=== PATIENT | female | born 1950 | race Caucasian/White ===

== ENCOUNTER 2016-08-14 16:18 | Emergency (ER) | payer OTHER | END 2016-08-14 21:32 | disposition home or self-care (01) | LOC: FER 16:18 | DX: S39.012A Strain of muscle, fascia and tendon of lower back, initial encounter (principal); I10 Essential (primary) hypertension; E11.9 Type 2 diabetes mellitus without complications; M41.9 Scoliosis, unspecified; Z88.5 Allergy status to narcotic agent; Z79.899 Other long term (current) drug therapy | CPT/HCPCS: 72131; J1030; J1885 ==

== ENCOUNTER 2021-10-11 09:42 | Emergency (ER) | payer OTHER ==
[~2021-10-11] VITALS: Ht 154.9 cm; Wt 68.0 kg
[~2021-10-11 09:42] MED LIST: BIOTIN10000 MCG PO; DICLOFENAC POTA50 MG PO; METFORMIN HCL500 MG PO; PERCOCET 7.5/321 TAB PO; ROBAXIN750 MG PO; VOLTAREN **OUT50 MG PO
[2021-10-11] MEDS ORDERED: LISINOPRIL-HCT1 EAC2 PO (10:14)
[2021-10-11] MEDS ORDERED: METFORMIN HCL500 M1 PO (10:15)
[2021-10-11] MEDS ORDERED: SYNTHROID75 MC1 PO (10:15)
[2021-10-11] MEDS ORDERED: PRAVASTATIN SOD40 MG PO (10:15)
[2021-10-11 12:41] LABS: BASOPHIL 0.3 % (0-2); EOSINOPHIL 0.4 % (0-7); HCT 43.4 % (37.0-47.0); HGB 14.5 g/dl (12.5-16.0); LYMPHOCYTE 18.7 % (15-48); MCH 31.7 pg (25.0-31.0); MCHC 33.4 g/dL (32.0-36.0); MCV 94.8 fL (78.0-100.0); MONOCYTE 12.3 % (0-12); MPV 10.4 fL (6.0-9.5); NRBC 0; PLT 210 K/uL (150-400); RBC 4.58 M/uL (4.20-5.40); RDW 13.7 % (11.5-14.0); WBC 9.2 K/uL (4.0-10.5)
[2021-10-11 13:03] LABS: BUN/CREAT RATIO (CALC) 21.1 RATIO; C-REACTIVE PROTEIN 0.9 mg/dL (<=0.90); CREATININE 0.9 mg/dL (0.51-0.95); POTASSIUM 3.8 mmol/L (3.5-5.1); URIC ACID 5.9 mg/dL (2.6-6.2)
[2021-10-11] MEDS ORDERED: PREDNISONE 20MG20 MG PO (14:22)
[2021-10-11] MEDS ORDERED: NORCO 5-325 TA1 EACH PO (14:22)
== END 2021-10-11 14:57 | disposition home or self-care (01) ==
LOC: FER 09:42
PROVIDERS: Emergency Medicine
DX: M65.811 Other synovitis and tenosynovitis, right shoulder (principal); M06.811 Other specified rheumatoid arthritis, right shoulder; I10 Essential (primary) hypertension; E11.9 Type 2 diabetes mellitus without complications; Z88.5 Allergy status to narcotic agent; Z79.84 Long term (current) use of oral hypoglycemic drugs
CPT/HCPCS: 36415; 71045; 73020; 73070; 73130; 80048; 84484; 84550; 85025; 86038; 86140; 86431; 93005; 93971; J1100